=== PATIENT | female | born 1950 ===

== ENCOUNTER 2022-04-18 15:42 | Outpatient (CLI) | payer OTHER | END 2022-04-18 15:46 | disposition home or self-care (01) | LOC: LAB 15:42 | DX: Z20.822 Contact with and (suspected) exposure to COVID-19 (principal); R05.9 Cough, unspecified ==

== ENCOUNTER → 2022-06-09 | Emergency (ER) | payer OTHER ==
[~2022-06-09] VITALS: Ht 157.5 cm; Wt 59.0 kg
[~2022-06-09] MED LIST: ALLEGRA ALLERG180 MG PO; ALLERGY RELIE15.8 ML NS; BENADRYL25 MG PO; INTESTINEX680 M1 PO; PEPCID AC20 MG PO; PREVACID30 MG PO; RESTORIL30 M1 PO; TOPROL XL50 M1 PO
== END | disposition home or self-care (01) ==
LOC: ER 12:10
DX: K52.9 Noninfective gastroenteritis and colitis, unspecified (principal); Z88.6 Allergy status to analgesic agent

== ENCOUNTER 2023-06-07 15:13 | Outpatient (CLI) | payer OTHER ==
[2023-06-07 15:49] LABS: HEMATOCRIT 40.6 % (36.0-45.00); HEMOGLOBIN 13.9 g/dL (12.0-15.00); MEAN CELL VOLUME 90.9 fL (80.00-100.00); MEAN CORPUSCULAR HGB CONC 34.1 g/dl (32.0-36.0); PLATELET COUNT 260 K/uL (150-450); RED BLOOD COUNT 4.47 M/uL (4.00-6.00); RED CELL DISTRIBUTION WIDTH 13.4 % (11.5-14.5)
[2023-06-07 16:18] LABS: MYCOPLASMA PNEUMONIAE IGM NON REACTIVE (NO REACTIVE)
== END 2023-06-07 15:16 | disposition home or self-care (01) ==
LOC: LAB 15:13
DX: Z20.822 Contact with and (suspected) exposure to COVID-19 (principal); Z20.828 Contact with and (suspected) exposure to other viral communicable diseases; R05.1 Acute cough; R50.9 Fever, unspecified; R07.0 Pain in throat